=== PATIENT | male | born 1990 | race African-American/Black ===

== ENCOUNTER 2018-08-21 08:07 | Emergency (ER) | payer SELFPAY ==
[2018-08-21 08:16] VITALS: BP 130/77
[2018-08-21] MEDS ORDERED: AZITHROMYCIN 1 GM SUSP PACKET PO ONE (09:21)
[2018-08-21] MEDS ORDERED: METRONIDAZOLE 500 MG TABLET PO ONE (09:21)
[2018-08-21] MEDS ORDERED: LIDOCAINE 1% INJ-PF (10 MG/ML) 30 ML SDV INFIL ONE (09:21)
[2018-08-21] MEDS ORDERED: CEFTRIAXONE INJ 250 MG VIAL IM ONE (09:21)
[2018-08-21 09:52] LABS: APPEARANCE,URINE SLIGHTLY-CLOUDY; BILIRUBIN,URINE NEGATIVE (NEGATIVE); COLOR,URINE YELLOW; GLUCOSE, URINE NEGATIVE (NEGATIVE); KETONES,URINE TRACE mg/dL (NEGATIVE); LEUKOCYTE ESTERASE,URINE NEGATIVE (NEGATIVE); NITRITE,URINE NEGATIVE (NEGATIVE); PROTEIN,URINE NEGATIVE (NEGATIVE); URINE SPECIFIC GRAVITY 1.027
--- NOTE | 2018-08-21 10:18 | ER Document Report ---
ED General - General Chief Complaint: Urinary Problem Stated Complaint: BURNING WITH URINATION Time Seen by Provider: 08/21/18 08:31 TRAVEL OUTSIDE OF THE [place] IN LAST 30 DAYS: No - HPI Patient complains to provider of: Dysuria penile discharge Notes: Patient coming in for evaluation of penile discharge dysuria. Patient states that currently sexually active with one partner. Patient states woke up this morning with dysuria and burning when she urinated. Patient denies any history of STDs. Denies any history of multiple sexual partners. Patient otherwise resting comfortably upon my evaluation. Denies fever chills nausea vomiting diarrhea - Related Data Allergies/Adverse Reactions: No Known Allergies Allergy (Verified 08/21/18 08:25) Past Medical History - Social History Smoking Status: Current Every Day Smoker Chew tobacco use (# tins/day): No Frequency of alcohol use: None Drug Abuse: Marijuana Family History: Reviewed & Not Pertinent Patient has suicidal ideation: No Patient has homicidal ideation: No Renal/ Medical History: Denies: Hx Peritoneal Dialysis Review of Systems - Review of Systems Constitutional: No symptoms reported EENT: No symptoms reported Cardiovascular: No symptoms reported Respiratory: No symptoms reported Gastrointestinal: No symptoms reported Genitourinary: Dysuria Male Genitourinary: Penile discharge Musculoskeletal: No symptoms reported Skin: No symptoms reported Hematologic/Lymphatic: No symptoms reported Neurological/Psychological: No symptoms reported -: Yes All other systems reviewed and negative Physical Exam - Vital signs Vitals: Temp Pulse Resp BP Pulse Ox 97.9 F 74 16 130/77 H 100 08/21/18 08:15 08/21/18 08:15 08/21/18 08:15 08/21/18 08:15 08/21/18 08:15 Interpretation: Normal - General General appearance: Appears well, Alert - HEENT Head: Normocephalic, Atraumatic Eyes: Normal Pupils: PERRL - Respiratory Respiratory status: No respiratory distress Chest status: Nontender Breath sounds: Normal Chest palpation: Normal - Cardiovascular Rhythm: Regular Heart sounds: Normal auscultation Murmur: No - Abdominal Inspection: Normal Distension: No distension Bowel sounds: Normal Tenderness: Nontender Organomegaly: No organomegaly - Genitourinary Inspection: Normal, Other - Cannot express any penile discharge. No: Penile discharge Tenderness: Nontender Cremasteric reflex: Normal Scrotum: Normal - Back Back: Normal, Nontender - Extremities General upper extremity: Normal inspection, Nontender, Normal color, Normal ROM , Normal temperature General lower extremity: Normal inspection, Nontender, Normal color, Normal ROM , Normal temperature, Normal weight bearing. No: Saskia's sign - Neurological Neuro grossly intact: Yes Cognition: Normal Orientation: AAOx4 Dyke Coma Scale Eye Opening: Spontaneous Dyke Coma Scale Verbal: Oriented Mitchel Coma Scale Motor: Obeys Commands Mitchel Coma Scale Total: 15 Speech: Normal Motor strength normal: LUE, RUE, LLE, RLE Sensory: Normal - Psychological Associated symptoms: Normal affect, Normal mood - Skin Skin Temperature: Warm Skin Moisture: Dry Skin Color: Normal Course - Re-evaluation Re-evalutation: 08/21/18 14:50 Patient concern for possible STD. Urinalysis shows concentration of the urine patient does admit to not drinking as much fluid as he normally does. Recommend patient increase his fluid intake. A dirty urine was performed however patient is opting for prophylactic treatment will give Rocephin and azithromycin and Flagyl for treatment of gonorrhea chlamydia and trichomonas. Patient is to call later this afternoon or tomorrow for his results - Vital Signs Vital signs: Temp Pulse Resp BP Pulse Ox 97.9 F 74 16 130/77 H 100 08/21/18 08:15 08/21/18 08:15 08/21/18 08:15 08/21/18 08:15 08/21/18 08:15 - Laboratory Laboratory results interpreted by me: 08/21/18 09:17 Urine Ketones TRACE H Urine Urobilinogen 2.0 H Urine Ascorbic Acid 40 H Discharge - Discharge Clinical Impression: Dysuria Condition: Good Disposition: HOME, SELF-CARE Instructions: Chlamydia (OM), Gonorrhea (OM), Trichomonas Infection (OM) Additional Instructions: Your physical examination is concerning for possible sexually transmitted disease such as gonorrhea chlamydia trichomonas. We will gave you antibiotics today to treat all 3 of these. I have recommended follow-up with your primary care physician. He can call tomorrow during business hours 9-5 to have your gonorrhea and Chlamydia results given to your the phone. Your urinalysis does not show any signs of urinary tract infection at this time. Please follow-up with your primary care physician. Forms: Return to Work
[2018-08-21 10:44] LABS: CHLAM PCR NOT DETECTED (NOT DETECT); GON PCR NOT DETECTED (NOT DETECT)
== END 2018-08-21 10:31 | disposition home or self-care (01) ==
LOC: ER 08:07
DX: R30.0 Dysuria (principal); F17.200 Nicotine dependence, unspecified, uncomplicated
CPT/HCPCS: 99283; 96372; 81001; 87491; 87591; J3490; Q0144; J0696